=== PATIENT | female | born 1960 | race Caucasian/White ===

== ENCOUNTER 2020-11-09 09:50 | Outpatient (REF) | payer OTHER, SELFPAY ==
--- NOTE | ~2020-11-09 | MM_ITS ---
EXAMINATION: MM SCREENING DIGITAL BREAST TOMOSYNTHESIS, BILATERAL CLINICAL INFORMATION: Screening. Asymptomatic. The lifetime risk of breast cancer based on the Tyrer-Cuzick Model is 12%. COMPARISON: Mammography: 10/01/2017, 09/15/2016, 06/15/2015 TECHNIQUE: Digital breast tomosynthesis is performed in both the craniocaudal and mediolateral oblique views along with computer-aided detection (CAD). Synthesized 2D images are generated from the tomosynthesis. Additional right MLO view and exaggerated right CC view are provided. FINDINGS: There are scattered areas of fibroglandular density (ACR BI-RADS breast composition Category b). There are no significant masses, abnormal calcifications, or other abnormalities. Parenchymal pattern is similar to prior studies. No developing density or interval mass or architectural abnormality. There are 2 stable intramammary nodes posterior upper outer left breast. The axilla and skin contours are unremarkable. MM/MM tomosynthesis screening BI IMPRESSION: No mammographic evidence of malignancy. ASSESSMENT: BI-RADS 2: Benign RECOMMENDATION: Routine annual mammography screening. This patient's information was entered into a reminder system with a target due date for their next mammogram.
== END 2020-11-09 09:51 | disposition home or self-care (01) ==
LOC: HO.MAMMO 09:50
PROVIDERS: PCP Nurse Practitioner Family; Visit Provider Internal Medicine
DX: Z12.31 Encounter for screening mammogram for malignant neoplasm of breast (principal)
CPT/HCPCS: 77063; 77067

== ENCOUNTER 2022-04-07 09:49 | Outpatient (REF) | payer OTHER, SELFPAY ==
--- NOTE | ~2022-04-07 | MM_ITS ---
EXAMINATION: MM SCREENING DIGITAL BREAST TOMOSYNTHESIS, BILATERAL CLINICAL INFORMATION: Screening. Asymptomatic. The lifetime risk of breast cancer based on the Tyrer-Cuzick Model is 5.9%. COMPARISON: Mammography: November 09, 2020 and studies dating back to February 12, 2012 TECHNIQUE: Digital breast tomosynthesis is performed in both the craniocaudal and mediolateral oblique views along with computer-aided detection (CAD). Synthesized 2D images are generated from the tomosynthesis. FINDINGS: The breasts are almost entirely fatty (ACR BI-RADS breast composition Category a). There are no significant masses, abnormal calcifications, or other abnormalities. MM/MM tomosynthesis screening BI IMPRESSION: No significant changes ASSESSMENT: BI-RADS 1: Negative RECOMMENDATION: Routine annual mammography screening. This patient's information was entered into a reminder system with a target due date for their next mammogram.
== END 2022-04-07 09:50 | disposition home or self-care (01) ==
LOC: HO.MAMMO 09:49
PROVIDERS: Visit Provider Nurse Practitioner Family
DX: Z12.31 Encounter for screening mammogram for malignant neoplasm of breast (principal)
CPT/HCPCS: 77063; 77067

== ENCOUNTER 2023-10-13 14:58 | Outpatient (REF) | payer OTHER, SELFPAY ==
--- NOTE | ~2023-10-13 | MM_ITS ---
EXAMINATION: MM SCREENING DIGITAL BREAST TOMOSYNTHESIS, BILATERAL CLINICAL INFORMATION: Screening. Asymptomatic. COMPARISON: Mammography: Comparison is made with available priors TECHNIQUE: Digital breast tomosynthesis is performed in both the craniocaudal and mediolateral oblique views along with computer-aided detection (CAD). Synthesized 2D images are generated from the tomosynthesis. FINDINGS: There are scattered areas of fibroglandular density (ACR BI-RADS breast composition Category b). There are no significant masses, abnormal calcifications, or other abnormalities. MM/MM tomosynthesis screening BI IMPRESSION: No mammographic evidence of malignancy. ASSESSMENT: BI-RADS BI-RADS 1 - Negative RECOMMENDATION: Routine annual mammography screening. 1 year F/U This examination should not preclude the clinical evaluation of a suspicious palpable abnormality. This patient's information was entered into a reminder system with a target due date for their next mammogram. Electronically signed by: Radha Rodriguez DO 11/05/2023 08:41 PM EDT
== END 2023-10-13 14:59 | disposition home or self-care (01) ==
LOC: HO.MAMMO 14:58
PROVIDERS: PCP Nurse Practitioner Family; Visit Provider Nurse Practitioner Family
DX: Z12.31 Encounter for screening mammogram for malignant neoplasm of breast (principal)
CPT/HCPCS: 77063; 77067

== ENCOUNTER → 2023-10-13 15:30 | Outpatient (BNV) | payer OTHER, SELFPAY | PROVIDERS: PCP Nurse Practitioner Family; Visit Provider Internal Medicine | DX: Z12.31 Encounter for screening mammogram for malignant neoplasm of breast (principal) | CPT/HCPCS: 77063; 77067 ==

== ENCOUNTER 2024-09-30 18:31 | Emergency (ER) | payer OTHER, SELFPAY ==
--- NOTE | ~2024-09-30 | CT_ITS ---
CLINICAL HISTORY: fall and head injury CT head without contrast Indication: Comparison: None Findings: Brain is normal in volume and morphology. Ventricles are normal in size. Midbrain, luis fernando, medulla, and cerebellum are normal. There is no focal loss of andrade-white differentiation in a large arterial distribution. Scattered hypodensities in the subcortical and periventricular white matter are present. No subarachnoid hemorrhage is present. No subdural or epidural hematoma. Suprasellar and basal cisterns are clear. There is no midline shift. The sella demonstrates a flattened sellar morphology Orbits are normal. No acute calvarial fracture or diastasis. Mastoid air cells are normally aerated. Aerated paranasal sinuses are clear. Frontal sinuses are hypoplastic. Temporal bones are normal. Anatomic variant high-riding right jugular bulb. Scattered intraparotid lymph nodes are present bilaterally. No large soft tissue hematoma. IMPRESSION: 1. No acute intracranial hemorrhage. 2. No loss of andrade-white differentiation in a large vascular distribution. This document has been electronically signed by: Daryl Nova III, MD PHD on 09/30/2024 21:28:43
--- NOTE | ~2024-09-30 | CT_ITS ---
CLINICAL HISTORY: fall, neck pain CT cervical spine without contrast Comparison: None TECHNIQUE: Helical CT of the cervical spine with sagittal and coronal reconstructions. FINDINGS: Clivus and dens are normally aligned. Cervical alignment demonstrates anterolisthesis of C3 on C4 and loss of normal cervical lordosis. There is severe facet arthropathy at left C1-C2 there is a variant pseudoarticulation between the left occiput and the left lateral mass/transverse elements of C1 Occipital condyles are intact. Cervical vertebral body heights are maintained. Articular facets are normally aligned. There is severe facet arthropathy at left C1/2, C2/3, C3/4, C4/5, right C2/3. Spinous processes and lamina are intact. No CT evidence of epidural hematoma. C1/C2: Erosive changes are present in the dens with noncalcified retro dental soft tissue narrowing the foramen magnum. C2/C3: Posterior disc osteophyte complex and facet arthropathy contributing to severe left and moderate right foraminal narrowing. C3/C4: Posterior disc osteophyte complex and facet arthropathy contributing to moderate spinal canal stenosis, severe left, mild right foraminal narrowing. C4/C5: Posterior disc osteophyte complex contributes to mild spinal canal narrowing moderate left, mild right foraminal narrowing. C5/C6: There is severe disc space narrowing. Posterior disc osteophyte complex contributes to mild spinal canal narrowing and moderate bilateral foraminal narrowing. C6/C7: Moderate disc space narrowing. Posterior disc osteophyte complex and facet arthropathy contributing to mild bilateral foraminal narrowing. C7/T1: No spinal canal or foraminal narrowing. Prevertebral soft tissues are normal. Thyroid gland is homogeneous IMPRESSION: No acute fracture, subluxation, or static evidence of instability. Erosive changes at the atlanto odontoid articulation with retro dental soft tissue may be seen with CPPD arthropathy. Anatomic variant pseudoarticulation between the left occipital bone and the transverse elements of C1 contributing to accelerated degenerative change at O1-C1 and C1-C2. This document has been electronically signed by: Daryl Nova III, MD PHD on 09/30/2024 21:34:53
[2024-09-30 18:35] VITALS: BP 165/65; PULSE 79; RESP 18; TEMP 36.6; O2SAT 96; BMI 40.0
--- NOTE | 2024-09-30 18:49 | ECG_ITS ---
Test Reason : FALL Blood Pressure : */* mmHG Vent. Rate : 72 BPM Atrial Rate : 72 BPM P-R Int : 192 ms QRS Dur : 86 ms QT Int : 394 ms P-R-T Axes : -18 -9 -8 degrees QTcB Int : 431 ms Normal sinus rhythm Low voltage QRS Borderline ECG When compared with ECG of 17-May-2007 21:17, No significant changes seen Referred By: Taiwo Bell Electronically Signed By: Benito Chapman
--- NOTE | 2024-09-30 18:50 | ED_ITS ---
HPI - Fall General Chief Complaint: Fall Stated Complaint: fall w/ head strike Time Seen by Provider: 09/30/24 18:33 Source: patient and EMS Mode of arrival: EMS Limitations: no limitations History of Present Illness ED Provider: DR. Bell HPI Narrative: A 63-year-old female brought in by ambulance for evaluation after a fall. Patient was holding a grocery bag on her hands tripped over her flip-flop causing her to fall forward patient could not protect her fall with her hands hit the top of her head on the wall causing her to fall down with a questionable of less than 2nd of LOC, patient is complaining of headache, and left-sided neck pain initially was complaining of nausea that improved with sublingual Zofran. No weakness, no numbness, no CP, no abdominal pain, no extremities pain or deformity. Patient declined taking anticoagulation. Related Data Allergies Allergy/AdvReac Type Severity Reaction Status Date / Time No Known Allergies Allergy Verified 09/30/24 18:45 Review of Systems 2 Review of Systems: All other systems are reviewed and are negative Constitutional: Reports as per HPI and Reports no additional constitutional complaints Eyes: Reports as per HPI and Reports no additional eye complaints Reports system reviewed and no additional complaints, except as documented Cardiovascular: Reports as per HPI and Reports no additional cardiovascular complaints Respiratory: Reports as per HPI and Reports no additional respiratory complaints Gastrointestinal: Reports as per HPI and Reports no additional gastrointestinal complaints Genitourinary: Reports no additional female genitourinary complaints Musculoskeletal: Reports no additional musculoskeletal complaints Skin/Breast: Reports system reviewed and no additional complaints, except as docu Psychiatric: Reports no additional psychiatric complaints Endocrine: Reports no additional endocrine complaints Hematologic/Lymphatic: Reports no additional hematologic/lymphatic complaints Allergic/Immunologic: Reports no additional allergic/immunologic complaints Reports system reviewed and no additional complaints, except as documented and Reports Abnormal speech present [facility] Social History Social History Advance Directives: No Advance Directives Information Provided: No Physical Exam 2 Vital Signs: Vital Signs: Last Vital Signs Temp 97.9 F 09/30/24 18:35 Pulse 79 09/30/24 18:35 Resp 18 09/30/24 18:35 BP 165/65 H 09/30/24 18:35 Pulse Ox 96 09/30/24 18:35 O2 Del Method Room Air 09/30/24 18:35 BMI result Body Mass Index 40.0 Vital signs have been reviewed and appear to be correct. Blood pressure elevated. Heart rate normal. Respiratory rate normal. Temperature normal. Oxygen saturation normal. Appearance: Alert. Oriented X3. No acute distress. Head: Normal external exam. Normocephalic. Atraumatic. No Armenta signs noted. No raccoon eyes noted Eyes: PERRLA. EOMI. Conjunctiva and sclera normal. Eyelids normal. ENT: TM's Normal. Pharynx normal. Uvula midline. Moist mucous membranes. No trismus noted. No drooling noted. No muffled voice noted. Neck: C-collar keep cervical immobilization, Normal inspection. Neck supple. FROM. No adenopathy. Thyroid Normal. No meningeal signs. No neck mass noted. CVS: Normal heart rate and rhythm. Heart sound normal. No murmurs noted. Pulses normal throughout. Respiratory: No respiratory distress. Painless inspiration. Breath sounds normal. No wheezes/rales/rhonchi noted. Chest nontender. No accessory muscle usage noted or decreased air movement noted. Abdomen: Soft and nontender. Bowel sounds normal in all 4 quadrants. No distention noted. No organomegaly noted. No visible injury noted. Back: No CVA tenderness. Full range of motion noted. Skin: Skin warm and dry. Normal skin color. Normal skin turgor. No rashes/lesions/lacerations noted. Extremities: No lower extremity edema. Extremities exhibit normal range of motion. Extremities nontender. Neuro: Oriented X 3. GCS of 15. Cranial nerve exam: II-XII are grossly intact No motor deficit. No sensory deficit. Reflexes normal. Course Reevaluation(s) Reevaluation #1: s/p fall with head injury. Normal neuro exam, GCS of 15. Await for CT head/cervical spine official report. Signed out to Dr. Garcia. Time: 20:00 Reevaluation #2: work up negative Medications Administered Discontinued Medications Generic Name Dose Route Start Last Admin Trade Name Freq PRN Reason Stop Dose Admin Acetaminophen 650 mg 09/30/24 18:47 09/30/24 19:57 Acetaminophen 325 Mg Tablet PO 09/30/24 18:48 Not Given ONCE ONE Medical Decision Making Differential Diagnosis Differential Diagnoses: The differential diagnosis associated with the presentation includes ( Intracranial bleed, cervical spine injury, extremity injury, chest injury, abdominal injury, back injury, ACS.) Admission/Observation Consideration of admission/observation: Escalation of care including admission/observation considered Lab Data MDM Lab Attestation statement: I reviewed the patient's lab results. 09/30/24 19:45 09/30/24 19:45 Labs: Lab Results 09/30/24 Range/Units 19:45 WBC 10.7 (4.8-10.8) X10*3/uL RBC 4.87 (4.20-5.50) X10*6/uL Hgb 12.6 (12.0-16.0) g/dl Hct 38.8 (37.0-47.0) % MCV 79.7 L (80.0-98.0) fL MCH 25.9 L (27.0-33.0) pg MCHC 32.5 (31.0-35.0) g/dl RDW 13.6 (11.0-16.0) % Plt Count 308 (160-400) X10*3/uL MPV 10.0 (9.4-12.3) fL Immature Gran % (Auto) 0.3 (0.0-0.4) % Neut % (Auto) 68.3 (45-73) % Lymph % (Auto) 20.2 (20-40) % Haakon % (Auto) 7.7 (2-11) % Eos % (Auto) 2.8 (0-4) % Baso % (Auto) 0.7 (0-2) % Lymph # (Auto) 2.2 (1.2-4.9) X10*3/uL Haakon # (Auto) 0.8 (0.1-1.2) X10*3/uL Eos # (Auto) 0.3 (0.0-0.4) X10*3/uL Baso # (Auto) 0.1 (0.0-0.2) X10*3/uL Abs Immat Gran (auto) 0.03 (0.00-0.03) X10*3/uL Absolute Neuts (auto) 7.3 (2.0-8.3) x10*3/uL Absolute Nucleated RBC 0.000 (0.0-0.012) X10*3/uL Nucleated RBC % (auto) 0.0 (0.0-0.2) /100WBC Sodium 140 (135-145) mmol/L Potassium 4.1 (3.3-5.1) mmol/L Chloride 104 (96-108) mmol/L Carbon Dioxide 24 (22-29) mmol/L Anion Gap 16 (12-20) BUN 21 H (9-16) mg/dL Creatinine 0.67 (0.5-1.4) mg/dL Estim Creat Clear Calc 101.8 Estimated GFR > 60 Random Glucose 82 (60-115) mg/dL Calcium 9.7 (8.4-10.2) mg/dL Troponin I High Sens 2.8 (<3.5-17.0) ng/L Discharge Plan Discharge Clinical Impression: Closed head injury, Cervical sprain Patient Disposition: Home, Self-Care Instructions: Head Injury (ED) Additional Instructions: CT scan of head adn cervical spine show no acute trauma you have arthritis in the neck your primary care doctor can monitor this return for worsening symptoms or concerns such as severe pain, vomiting that wont' stop or confusion IMPRESSION: No acute fracture, subluxation, or static evidence of instability. Erosive changes at the atlanto odontoid articulation with retro dental soft tissue may be seen with CPPD arthropathy. Anatomic variant pseudoarticulation between the left occipital bone and the transverse elements of C1 contributing to accelerated degenerative change at O1-C1 and C1-C2. Print Language: Brazilian
[2024-09-30 19:50] LABS: MANUAL DIFF FLAG NO
[2024-09-30 19:51] LABS: Hematocrit 38.8 % (37.0-47.0); Hemoglobin 12.6 g/dl (12.0-16.0); Imm Gran Abs Auto 0.03 X10*3/uL (0.00-0.03); Imm Gran Pct Auto 0.3 % (0.0-0.4); Lymphocytes Absolute Auto 2.2 X10*3/uL (1.2-4.9); Mean Corpuscular HGB Conc 32.5 g/dl (31.0-35.0); Mean Corpuscular Hemoglobin 25.9 pg (27.0-33.0); Mean Corpuscular Volume 79.7 fL (80.0-98.0); NRBC Abs Auto 0.000 X10*3/uL (0.0-0.012); NRBC Pct Auto 0.0 /100WBC (0.0-0.2); Platelet Count 308 X10*3/uL (160-400); Red Blood Count 4.87 X10*6/uL (4.20-5.50); White Blood Count 10.7 X10*3/uL (4.8-10.8)
[2024-09-30 20:02] LABS: Anion Gap 16 (12-20); Blood Urea Nitrogen 21 mg/dL (9-16); Calcium 9.7 mg/dL (8.4-10.2); Carbon Dioxide 24 mmol/L (22-29); Chloride 104 mmol/L (96-108); Creatinine Clr Calc Pharmacy 101.8; Estimated Glomerular Filt Rate > 60; Potassium 4.1 mmol/L (3.3-5.1); Sodium 140 mmol/L (135-145)
[2024-09-30 20:10] LABS: Troponin-I High Sensitivity 2.8 ng/L (<3.5-17.0)
[2024-09-30 21:52] VITALS: BP 145/69; PULSE 73; RESP 16; TEMP 36.8; O2SAT 95
== END 2024-09-30 21:53 | disposition home or self-care (01) ==
PROVIDERS: Emergency Provider Emergency Medicine
DX: S06.9X1A Unspecified intracranial injury with loss of consciousness of 30 minutes or less, initial encounter (principal); S13.4XXA Sprain of ligaments of cervical spine, initial encounter; R40.2412 Glasgow coma scale score 13-15, at arrival to emergency department; W01.198A Fall on same level from slipping, tripping and stumbling with subsequent striking against other object, initial encounter; Y93.9 Activity, unspecified; Y92.9 Unspecified place or not applicable; Y99.9 Unspecified external cause status; R51.9 Headache, unspecified; M54.2 Cervicalgia; R11.0 Nausea
CPT/HCPCS: 36415; 70450; 72125; 80048; 84484; 85025; 93005; 99284

== ENCOUNTER → 2024-09-30 18:47 | Outpatient (BNV) | payer OTHER, SELFPAY | PROVIDERS: Emergency Provider Emergency Medicine; Visit Provider Radiology Diagnostic Radiology | DX: M54.2 Cervicalgia (principal); S09.90XA Unspecified injury of head, initial encounter | CPT/HCPCS: 70450; 72125 ==

== ENCOUNTER → 2024-09-30 18:49 | Outpatient (BNV) | payer OTHER, SELFPAY | PROVIDERS: Emergency Provider Emergency Medicine; Visit Provider Internal Medicine Cardiovascular Disease | DX: S09.90XA Unspecified injury of head, initial encounter (principal); W19.XXXA Unspecified fall, initial encounter | CPT/HCPCS: 93010 ==

== ENCOUNTER 2024-10-11 13:32 | Outpatient (REF) | payer OTHER, SELFPAY ==
--- NOTE | ~2024-10-11 | XR_ITS ---
EXAMINATION: XR WRIST, RIGHT CLINICAL INFORMATION: M25.531 - Pain in right wrist COMPARISON: October 08, 2024 TECHNIQUE: PA, lateral, and oblique views of the right wrist. FINDINGS: There is intra-articular fracture involving the distal radius is mildly impacted at the articular surface and there is mild volar tilt. There is a mildly distracted ulnar styloid tip fracture. No other fractures are identified. No degenerative changes are seen. XR/XR wrist RT min 3V IMPRESSION: Impacted distal radial intra-articular fracture. Avulsion fracture of the ulnar styloid tip. Electronically signed by: Frandy Paiz MD 10/11/2024 02:36 PM EDT
== END 2024-10-11 13:33 | disposition home or self-care (01) ==
LOC: HO.HOSX 13:32
DX: S52.561A Barton's fracture of right radius, initial encounter for closed fracture (principal); S52.611A Displaced fracture of right ulna styloid process, initial encounter for closed fracture; W01.0XXA Fall on same level from slipping, tripping and stumbling without subsequent striking against object, initial encounter; Y92.009 Unspecified place in unspecified non-institutional (private) residence as the place of occurrence of the external cause
CPT/HCPCS: 73110

== ENCOUNTER 2024-10-11 13:39 | Outpatient (AMB) | payer OTHER, SELFPAY ==
[2024-10-11 13:48] VITALS: BMI 39.8
--- NOTE | 2024-10-11 13:48 | MHC.OFFVIS ---
Vital Signs 10/11/24 13:48 Height 5 ft 4 in Weight 232 lb BMI 39.8 Intake Visit Reasons: FC-RT Radius & RT Ulnar Styloid-10/08/24 Intake Note: Brandy is a 63 year old right hand dominant female who presents today for evaluation of a Right Radius Fracture & a Right Ulnar Styloid Fracture, DOI: 10/08/24. Patient states she tripped and fell while at her daughter's house. Patient complains of burning sensation on the dorsal aspect of the right wrist. She is taking Tylenol with relief. Denies numbness, tingling, finger locking. No previous injuries or fractures to the right hand. Patient is also reporting she injured her left wrist during this fall. She is concerned for swelling on the ulnar aspect of the left wrist. Patient was originally evaluated at [facility] , who referred patient. Accompanied by: Daughter Allergies adhesive tape Adverse Reaction (Severe, Verified 10/11/24 13:51) Rash HPI HPI FC-RT Radius & RT Ulnar Styloid-10/08/24: Details: Brandy is a 63 year old right hand dominant female who presents today for evaluation of a Right Radius Fracture & a Right Ulnar Styloid Fracture, DOI: 10/08/24. Patient states she tripped and fell while at her daughter's house. Patient complains of burning sensation on the dorsal aspect of the right wrist. Patient also reports significant pain in the volar aspect of the right wrist She is taking Tylenol with relief. Denies numbness, tingling, finger locking. No previous injuries or fractures to the right hand. Patient is also reporting she injured her left wrist during this fall. She is concerned for swelling on the ulnar aspect of the left wrist, however the patient reports that any pain she was experiencing in the left hand has completely resolved. [facility] Medical History (Updated 10/11/24 @ 18:37 by FLORIAN Moore) Obesity HLD (hyperlipidemia) GERD (gastroesophageal reflux disease) Depression Insomnia Asthma Allergic rhinitis Social History (Updated 10/11/24 @ 13:52 by SANDY Lezama) Patient Tobacco Use Status: Former Tobacco user Current occupational status: employed Current occupation: [employer] at [employer] Review of Systems Const All systems reviewed & are unremarkable except as noted in HPI and below Physical Exam Vital Signs: BMI result Body Mass Index 39.8 Extrem Other: Patient is alert, oriented, and in no acute distress. Neuro: Normal sensation of the tips of all digits of the right hand at this time Vascular: Cap refill brisk Pain: Significant tenderness to palpation about right distal radius No anatomical snuffbox tenderness Skin: No lacerations or abrasions. General: Resolving ecchymosis, no erythema or evidence of infection Psych: Appears grossly normal Affect normal Attitude cooperative Results Reviewed Results Reviewed: X-rays obtained in the office today and independently reviewed by me, Jonny Jung PA-C, demonstrate minimally displaced volar Bowser fracture of the right distal radius with displaced avulsion fracture of the right ulnar styloid. Assessment & Plan Assessment & Plan (1) Fracture of right distal radius: Code(s): S52.501A - Unspecified fracture of the lower end of right radius, initial encounter for closed fracture Category: Medical Plan 1. Right distal radius fracture Date of injury 10/08/2024 I educated the patient about the condition. I discussed both operative and nonoperative treatment options. The patient would like to proceed with surgery. The risks and benefits of operative treatment were discussed with the patient and the patient wishes to proceed with surgery. These risks include, but are not limited to, risk of damage to blood vessels, nerves, tendons, infection, recurrence, incomplete relief of preoperative symptoms, persistent pain, possible need for further surgery, and the risks associated with regional blocks and/or anesthesia. Plan is to take the patient to the operating room at some point on 10/12/2024 for the following procedures: 1. Right distal radius ORIF under general anesthesia All of the preoperative paperwork including the consent was discussed today. All of the patient's questions were answered in the clinic today. The patient understands that they will be in contact with our medical or surgical instrument maker to discuss scheduling their procedure. Patient denies diabetes, blood thinners, asthma, heart issues, lung issues, kidney issues, or current smoking. Orders: Orders XR wrist RT min 3V Today M25.531 - Pain in right wrist Coding Level of Care Code New Pt Level 4 (31123) Diagnoses Fracture of right distal radius S52.501A
== END 2024-10-11 14:39 | disposition home or self-care (01) ==
LOC: HO.HOS 13:39
DX: S52.501A Unspecified fracture of the lower end of right radius, initial encounter for closed fracture (principal)
CPT/HCPCS: 99204

== ENCOUNTER → 2024-10-11 13:42 | Outpatient (BNV) | payer OTHER, SELFPAY | PROVIDERS: Visit Provider Radiology Diagnostic Radiology | DX: M25.531 Pain in right wrist (principal) | CPT/HCPCS: 73110 ==

== ENCOUNTER 2024-10-12 10:50 | Day surgery (SDC) | payer OTHER, SELFPAY ==
--- OUTSIDE RECORDS SUMMARY | 2024-10-11 10:23 | XMS_ITS | Patient Health Record ---
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 1 .use custom PTB/AF O brace left leg with heel padding Wear daily; Duration: . 11/23/2014 Not-Taking Work Note . . . pt is disabled f rom work until 11/01/14 and then must wear cast boot and use elevator with limited standing or walking 10/29/2014 Not-Taking Advair Diskus Not-Ta [facility] Allergy Activ e Simvastatin 40 MG 1 tablet in the even ing Orally Once a day Active Sertraline HCl 50 MG 1 tablet Orally Onc e a day; Duration: 30 day(s) Active Montelukast Sodium 10 MG 1 tablet Orally Once a day; Duration: 30 day(s) Active Immunizations Vaccine Route Administration Date Status Comme nts COVID-19 Pfizer BioNTech Vaccine Unknown 06/22/2020 Administered First Dose: Social History Tobacco Use: Social History Observation Description Date Details (start date - stop date) Former Smoker NA - NA Tobacco Use/Smoking Question Answer Notes Are you a: former smoker Additional Findings: Tobacco Non-User Current no n-smoker Alcohol Screen Question Answer Notes Did you have a drink containing alcohol in the p ast year? No Points 0 Interpretation Negative Tobacco use other than smoking: Question Answer Notes Are you an other tobacco user? No Problems Problem Type SNOMED Code ICD Code Onset Dates Problem Status W/U Status Risk Notes Problem Stress fracture of left ankle (disorder) (4420106063181350 3) Stress fracture of left ankle with routine healing (M84.372D) Active confirmed Problem Localized, primary osteoarthritis of the ankle and/or foot (224092627) Osteoarthritis of right ankle and foot (M19.071) Active confirmed Plan Of Treatment Pending Test Test Name Order Date X ray : Ankle, left 2V 07/12/2014 X ray : Foot, left 2V 07/12/2014 X ray : Foot, left 3V 06/10/2011 X ray : Foot, right 3V 12/01/2012 X ray : Foot, right 3V 02/12/2021 22426, J0702- INJECT or DRAIN, JOINT/BUR SA 09/17/2014 61253, J0702- Neuroma/Injection 12/02/19 13 [id number] Boot/Pneumatic 10/15/2011 Insurance Providers Payer Name Payer Address Payer Phone Subscriber Number Group Number Insured Name Patient Relationship to Insured Coverage Start Date Coverage End Date [facility] [address] [place] [address] [phone] [id number] Brandy Del Angel Self - patient is the insured Medical (General) History Medical History History ICD Code asthma chicken pox Surgical History Surgery Date(Month/Year) wisdom teeth extraction
[2024-10-12] VITALS (9 sets, daily range): BP systolic 114–162; BP diastolic 55–72; PULSE 65–87; RESP 11–16; TEMP 36.4–36.9; O2SAT 90–97; BMI 39.0
--- NOTE | ~2024-10-12 | FL_ITS ---
EXAMINATION: FL GUIDANCE ONLY HISTORY: Radius Distal Fracture ORIF (Right) COMPARISON: Correlation is made with plain films of the right wrist dated 10/11/2024. TECHNIQUE: Fluoroscopy time: 76.64 seconds. Cumulative Dose: 2.007 mGy. DAP: 0.1213 mGym2 Images: 11. FINDINGS: Fluoroscopic spot films of the right wrist demonstrate internal fixation of the previously seen comminuted intra-articular fracture with a sideplate and multiple orthopedic screws. Alignment is anatomic. FL/FL guidance in OR IMPRESSION: Fluoroscopy during procedure. Please see procedure report for additional information. Electronically signed by: Miguelangel Florez MD 10/12/2024 03:18 PM EDT
--- NOTE | 2024-10-12 09:18 | W.PM.OPN ---
Operative Note Operative Note Date of Service: 10/12/24 Narrative: Operative Note Narrative: Preop diagnosis: 1. Right Distal radius fracture, comminuted intra-articular volar Bowser Postop diagnosis: Same Procedure: 1. Right Distal radius fracture open reduction internal fixation, 2 part intra-articular Surgeon: Odilia Correa MD District Representative: Jonny DU Anesthesia: General anesthesia plus regional block Findings: Volar Bowser variant Implants: A 3 hole Accu Med volar locking plate, with 4 X 2.3 mm locking pegs/screws, and 3 x 3.5 mm cortical screws Tourniquet time: 45 minutes EBL: 5.0 ml Specimen: None Drains: None Complications: None Disposition: Brought to the recovery room in stable condition Plan: Follow-up in 10-14 days for wound check, suture removal and postop radiographs The patient will be placed in either a short-arm cast or a volar wrist splint. Encouraged no lifting of anything heavier than a cell phone. Please encourage active and passive range of motion of the digits. Follow-up at 4-5 weeks postop for repeat radiographs. Indications: The patient is a 63 year old woman with right distal radius fracture . The risks and benefits of operative treatment, including but not limited to risk of damage to blood vessels, nerves, tendons, infection, recurrence, persistent pain or numbness, incomplete resolution of preoperative symptoms, or need for further surgery were discussed with the patient and they wished to proceed with surgery. Procedure: Once consent was obtained patient was brought back to the operating suite and placed in the operating table in a supine position. A regional block was performed by the anesthesia team. Perioperative antibiotics and anesthesia was administered by the anesthesia team. A tourniquet was applied to the proximal aspect of the right upper extremity and the limb was prepped and draped in a standard surgical fashion. The limb was elevated exsanguinated with Esmarch bandage and the tourniquet inflated to 250 mm of mercury for a total tourniquet time of 45 minutes. The FluoroScan was used throughout the case to assess our reduction, and facilitate implant placement. A gentle closed reduction was 1st performed on the patient's right distal radius fracture. Was assessed radiographically before proceeding with the reduction internal fixation. I then made an 8 cm longitudinal incision over the distal aspect of the flexor carpi radialis tendon. The incision was made through the skin to the subcutaneous tissue using a 15. Blade. Then carefully dissected down to flexor carpi radialis tendon she tenotomy scissors. The FCR tendon sheath was then incised longitudinally using tenotomy scissors under direct visualization. The FCR tendon was then retracted ulnarly. I then made a longitudinal incision in the volar forearm fascia through the floor of FCR tendon sheath using tenotomy scissors under direct visualization. I identified the interval between the radial artery and the flexor tendons. This interval was developed further with my index finger, releasing some of the muscular fibers of the flexor pollicis longus. A dull weatlander retractor was then placed. I then created an ulnarly based flap of the pronator quadratus by releasing the radial and distal edges using a 15. Blade. A Biggs elevator was used to elevate the pronator quadratus from the volar surface of the distal radius. This then revealed to us our distal radius fracture. This was a volar Bowser intra-articular distal radius fracture with volar and proximal displacement An open reduction was then performed on our distal radius fracture. I then placed a short narrow 3 hole Accu Med volar locking plate on the volar surface of the distal radius. This was secured 1st by drilling bicortically through the oval hole on the shaft with a 2.8 mm drill bit. I then placed the appropriate length 3.5 mm cortical screw. Radiographs were assessed and we were satisfied with its position. I then placed 4 X 2.3 mm locking screws/pegs in the distal aspect of the plate and distal radius by 1st drilling bicortically with a 2.0 mm drill bit, measuring with a depth gauge, and placing the appropriate length locking screws/pegs. The placement of our plate and screws was then assessed again using fluoroscopic images. The once satisfied with the placement of the volar locking plate and screws on the distal aspect of the distal radius, 2 additional 3.5 mm cortical screws were placed in the shaft in a similar manner to the 1st. Final radiographs were then obtained. The DRUJ was assessed and found to be stable on exam. I was satisfied with our reduction and placement of all implants. At this point the wound was irrigated with normal saline. The pronator quadratus was reduced back over the volar locking plate using some 3-0 Vicryl suture material. The tourniquet was then deflated and hemostasis was obtained with a brief period of local pressure and bipolar monopolar electrocautery. The subcutaneous layer was then reapproximated using some 4-0 Vicryl suture, and the skin edges were reapproximated using some 5 0 Prolene suture. The wound was then infiltrated with some 1% lidocaine with epinephrine postop pain control. A sterile dressing and a short dorsal splint allowing for active flexion and extension of the digits was applied. The patient appears to have tolerated the procedure well and with no complications. All digits were well vascularized conclusion of the case.
[2024-10-12] MEDS: Lactated Ringers 1,000 ML 100 ML IVCONT (11:15)
--- NOTE | 2024-10-12 11:34 | MHC.SHP ---
Pre-Procedural Eval Section A - 24 Hr Update-Section A only Date of Service: 10/12/24 The patient is an INPATIENT: No Changes since office visit: No Cold of Flu in the past 2 weeks, No New Medical Problems, No Changes in Medication and No Patient answered all questions The patient has been examined within 24 hours of the surgical procedure. The History & Physical has been completed within 30 days and I have reviewed it.: Yes Section B - Complete if H&P > 30 days Chief Complaint: Colles' fracture of right radius, initial encounte Allergies: Allergies Allergy/AdvReac Type Severity Reaction Status Date / Time adhesive tape AdvReac Severe Rash Verified 10/11/24 13:51 Plan I have reviewed the history and physical and performed a pertinent physical examination on my patient. No changes have occurred unless specified. Time Spent With Patient Time: Total time managing care of this patient today ____ minutes.
--- NOTE | 2024-10-12 12:05 | HO.ANESPROP2 ---
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 [employer] Allergies Allergy/AdvReac Type Severity Reaction Status Date / Time adhesive tape AdvReac Severe Rash Verified 10/11/24 13:51 Home Medications ?Medication ?Instructions ?Recorded ?Confirmed ?Last Taken ?Type albuterol sulfate 90 mcg/actuation inhalation 10/11/24 Unknown History aerosol inhaler budesonide-formoterol HFA 160 inhalation 10/11/24 Unknown History mcg-4.5 mcg/actuation aerosol inhaler (Symbicort) meloxicam 15 mg tablet 15 mg PO DAILY 10/11/24 Unknown History montelukast 10 mg tablet 10 mg PO DAILY 10/11/24 Unknown History sertraline 50 mg tablet 50 mg PO DAILY 10/11/24 Unknown History simvastatin 40 mg tablet 40 mg PO BEDTIME 10/11/24 10/11/24 08:00 History Exam Pertinent Lab Results Pertinent Lab Results: Laboratory Tests 09/30/24 19:45 WBC 10.7 Hgb 12.6 Hct 38.8 Plt Count 308 Sodium 140 Potassium 4.1 Chloride 104 Carbon Dioxide 24 BUN 21 H Creatinine 0.67 Assessment and Plan Assessment Anesthesia Assessment: Chart Reviewed Documented by User: Gloria Santamaria DO 10/12/24 12:40 [facility] Past Medical History Medical History (Updated 10/11/24 @ 18:37 by FLORIAN Moore) Obesity HLD (hyperlipidemia) GERD (gastroesophageal reflux disease) Depression Insomnia Asthma Allergic rhinitis Family History Family history of problems with anesthesia: No Surgical History History of Problems with Anesthesia: No Social History Social History (Updated 10/11/24 @ 13:52 by SANDY Lezama) Patient Tobacco Use Status: Former Tobacco user Current occupational status: employed 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 [employer] Allergies Allergy/AdvReac Type Severity Reaction Status Date / Time adhesive tape AdvReac Severe Rash Verified 10/11/24 13:51 Home Medications ?Medication ?Instructions ?Recorded ?Confirmed ?Last Taken ?Type albuterol sulfate 90 mcg/actuation inhalation 10/11/24 Unknown History aerosol inhaler budesonide-formoterol HFA 160 inhalation 10/11/24 Unknown History mcg-4.5 mcg/actuation aerosol inhaler (Symbicort) meloxicam 15 mg tablet 15 mg PO DAILY 10/11/24 Unknown History montelukast 10 mg tablet 10 mg PO DAILY 10/11/24 Unknown History sertraline 50 mg tablet 50 mg PO DAILY 10/11/24 Unknown History simvastatin 40 mg tablet 40 mg PO BEDTIME 10/11/24 10/11/24 08:00 History Exam Exam Date and Time: 10/12/24 1205 Height,Weight and Vital Signs: Height 5 ft 4 in Weight 103.1 kg Vital Signs Temperature 98.5 F 10/12/24 11:15 Pulse Rate 75 10/12/24 11:15 Respiratory Rate 16 10/12/24 11:15 Blood Pressure 162/72 H 10/12/24 11:15 Pulse Oximetry 96 10/12/24 11:15 Oxygen Delivery Method Room Air 10/12/24 11:15 Temperature 98.5 F 10/12/24 11:15 Pulse Rate 75 10/12/24 11:15 Respiratory Rate 16 10/12/24 11:15 Blood Pressure 162/72 H 10/12/24 11:15 Pulse Oximetry 96 10/12/24 11:15 Oxygen Delivery Method Room Air 10/12/24 11:15 Airway Mallampati Class: III TM Dist: <=3cm Neck ROM: Full Loose/Missing/Broken Teeth: No (patient denies any loose or broken teeth) Heart: S1S2 Lungs: CTAB Assessment and Plan Assessment Anesthesia Assessment: Anesthesia Plan Discussed and Chart Reviewed Final Anesthetic Review Family History of Problems with Anesthesia: No History of Problems with Anesthesia: No NPO: Yes ASA Class: II Final Preanesthetic Review: No Changes in Pt Med Stat, Meds/Allgs Chart Reviewed, Consent Obtained/Reviewed and Anes Risks/Benef Reviewed Patient Risk: Low Procedure Risk: Intermediate Anesthetic Plan Anesthetic Plan: GA, Regional Block (right brachial plexus block) and Agree w/ Assess. and Plan Disposition: Standard PACU
== END 2024-10-12 16:10 | disposition home or self-care (01) ==
PROVIDERS: Visit Provider Orthopaedic Surgery
PROC: (CPT 25608; principal; 2024-10-12 12:40)
DX: S52.571A Other intraarticular fracture of lower end of right radius, initial encounter for closed fracture (principal); W01.198A Fall on same level from slipping, tripping and stumbling with subsequent striking against other object, initial encounter; Y93.01 Activity, walking, marching and hiking; Y92.89 Other specified places as the place of occurrence of the external cause; Y99.9 Unspecified external cause status; R51.9 Headache, unspecified; M54.2 Cervicalgia; M47.812 Spondylosis without myelopathy or radiculopathy, cervical region; E78.5 Hyperlipidemia, unspecified; J45.909 Unspecified asthma, uncomplicated; F32.A Depression, unspecified; Z79.51 Long term (current) use of inhaled steroids; Z79.899 Other long term (current) drug therapy; L23.1 Allergic contact dermatitis due to adhesives; Z87.891 Personal history of nicotine dependence
CPT/HCPCS: 25608; C1713; J0131; J0690; J1100; J2003; J2004; J2250; J2371; J2405; J2704; J3010

== ENCOUNTER → 2024-10-12 10:50 | Outpatient (BNV) | payer OTHER, SELFPAY | PROVIDERS: Visit Provider Orthopaedic Surgery | DX: S52.571A Other intraarticular fracture of lower end of right radius, initial encounter for closed fracture (principal) | CPT/HCPCS: 25608 ==

== ENCOUNTER 2024-10-25 09:07 | Outpatient (REF) | payer OTHER, SELFPAY ==
--- NOTE | ~2024-10-25 | XR_ITS ---
EXAMINATION: XR WRIST 3 OR MORE VIEWS RIGHT HISTORY: M25.531 - Pain in right wrist COMPARISON: Comparison is made with the prior examination dated 10/11/2024. FINDINGS: Three views of the right wrist are submitted. Osseous mineralization is normal. The patient is status post internal fixation of the previously seen comminuted intra-articular fracture of the distal radius with a sideplate and multiple orthopedic screws. The fracture lines remain visible. The radial styloid is a separate fragment. There is also a fracture of the ulnar styloid. The joint spaces are preserved. The soft tissues are unremarkable. XR/XR wrist RT min 3V IMPRESSION: Internal fixation of the previously seen comminuted intra-articular fracture of the distal radius as described. Electronically signed by: Miguelangel Florez MD 10/25/2024 10:09 AM EDT
--- OUTSIDE RECORDS SUMMARY | 2024-10-25 10:46 | XMS_ITS | Patient Health Record ---
[facility] Address [address] [place] [address] Care Team Providers Care Direct Selling Counselor Name Role Phone Daryl Bustos Primary Care Provider Jessica Mckeon Unavailable [phone] Allergies No Known Allergies Reason For Referral [...] or walking 10/29/2014 Not-Taking Advair Diskus Not-Ta [facility] Allergy Activ e Simvastatin 40 MG 1 [...] Problem Stress fracture of left ankle (disorder) (2317386953895442 3) Stress fracture of left ankle with routine healing (M84.372D) Active confirmed Problem Localized, primary osteoarthritis of the ankle and/or foot (150123587) Osteoarthritis of right ankle and foot (M19.071) Active confirmed Plan Of Treatment Pending Test Test Name Order Date X ray : Ankle, left 2V 07/12/2014 X ray : Foot, left 2V 07/12/2014 X ray : Foot, left 3V 06/10/2011 X ray : Foot, right 3V 12/01/2012 X ray : Foot, right 3V 02/12/2021 88791, J0702- INJECT or DRAIN, JOINT/BUR SA 09/17/2014 95314, J0702- Neuroma/Injection 12/02/19 13 [id number] Boot/Pneumatic 10/15/2011 Insurance Providers Payer Name Payer Address Payer Phone Subscriber Number Group Number Insured Name Patient Relationship to Insured Coverage Start Date Coverage End Date [facility] [address] [place] [address] [id number] Brandy Del Angel Self - patient is the insured Medical (General) History Medical History History ICD Code asthma chicken pox Surgical History Surgery Date(Month/Year) wisdom teeth extraction
== END 2024-10-25 09:08 | disposition home or self-care (01) ==
LOC: HO.HOSX 09:07
DX: S52.501D Unspecified fracture of the lower end of right radius, subsequent encounter for closed fracture with routine healing (principal); X58.XXXD Exposure to other specified factors, subsequent encounter
CPT/HCPCS: 29075; 73110

== ENCOUNTER 2024-10-25 09:43 | Outpatient (AMB) | payer OTHER, SELFPAY ==
--- NOTE | 2024-10-25 10:01 | MHC.OFFVIS ---
Vital Signs 10/25/24 10:02 Height 5 ft 4 in Weight 227 lb BMI 39.0 Intake Visit Reasons: PO RT distal radius ORIF 10/12/24 AR Intake Note: Brandy is a 63 year old right hand dominant woman who presents today for a post operative visit status post Right Distal Radius Fracture ORIF, DOS: 10/12/[address] Correa. Patient reports tingling sensation when bringin her forearm down. Denies any pain, other numbness or tingling. She is not taking anything for pain. Allergies adhesive tape Adverse Reaction (Severe, Verified 10/25/24 10:07) Rash HPI HPI PO RT distal radius ORIF 10/12/24 AR: Details: Brandy is a 63 year old right hand dominant woman who presents today for a post operative visit status post Right Distal Radius Fracture ORIF, DOS: 10/12/[address] Correa. Patient reports tingling sensation when bringin her forearm down. Denies any pain, other numbness or tingling. She is not taking anything for pain. Patient is a very satisfied with her recovery course so far. 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 Neuro: Normal sensation of the tips of all digits of the right hand at this time Vascular: Cap refill brisk Pain: Some tenderness to palpation of the right distal radius No pain with range of motion of the right hand ROM: Patient is able to make a closed fist and extend all digits of the right hand fully Skin: Well approximated and well healing incision site noted on the volar right wrist No lacerations or abrasions. General: Resolving ecchymosis, No erythema, or evidence of infection. Psych: Appears grossly normal Affect normal Attitude cooperative Office Procedures Casting/Splints 77236-Rbau/Wrist Cast Application Procedure code (CPT) selection complete Results Reviewed Results Reviewed: X-rays obtained in the office today and independently reviewed by me, Jonny Jung PA-C, demonstrate surgically repaired and reduced fracture of the right distal radius with all orthopedic hardware in place and in satisfactory clinical alignment. Assessment & Plan Assessment & Plan (1) Fracture of right distal radius: Code(s): S52.501A - Unspecified fracture of the lower end of right radius, initial encounter for closed fracture Category: Medical Plan 1. Status post right distal radius ORIF DOS 10/12/2024 Patient appears to be recovering well postoperatively Patient is educated about the typical recovery course The patient is placed into a short-arm cast at this time Patient is educated on proper cast care and precautions 2 lb weight limit reinforced in right hand Patient excused from work today Follow-up in 2 weeks with x-rays for reassessment, anticipate cast removal at that time, sooner with any acute concerns Orders: Orders XR wrist RT min 3V Today M25.531 - Pain in right wrist Coding Level of Care Code Global (63419) Diagnoses Fracture of right distal radius S52.501A CPT Codes Casting - CPT: 69993-Ztbe/Wrist Cast Application ([id number])
[2024-10-25 10:02] VITALS: BMI 39.0
== END 2024-10-25 10:59 | disposition home or self-care (01) ==
LOC: HO.HOS 09:47
DX: S52.501A Unspecified fracture of the lower end of right radius, initial encounter for closed fracture (principal)
CPT/HCPCS: 29075; 99024

== ENCOUNTER → 2024-10-25 09:48 | Outpatient (BNV) | payer OTHER, SELFPAY | PROVIDERS: Visit Provider Radiology Diagnostic Radiology | DX: M25.531 Pain in right wrist (principal) | CPT/HCPCS: 73110 ==

== ENCOUNTER 2024-11-08 12:42 | Outpatient (AMB) | payer OTHER, SELFPAY ==
--- NOTE | 2024-11-08 13:16 | A.OFFVIS_ITS ---
Intake Visit Reasons: PO RT distal radius ORIF 10/12/24 AR-2WK follow up Intake Note: Brandy is a 63 year old right hand dominant female who presents today for a post operative visit status post undergoing a right distal radius fracture ORIF, DOS: 10/12/[address] Odilia Correa. At her last visit she was placed in a short arm cast and advised to lift nothing heavier than 2 pounds in the right hand. Cast was removed today to update x-rays. Patient states he right wrist feels very different and good after removing the cast in office. She is experiencing stiffness in the right wrist and all her digits of the right hand. Numbness and tingling occurs only if she has her arm lowered for a long preiod of time. She takes Advil and finds adequate relief with this. Patient needs a work note today. Allergies adhesive tape Adverse Reaction (Severe, Verified 11/08/24 13:19) Rash HPI HPI PO RT distal radius ORIF 10/12/24 AR-2WK follow up: Details: Brandy is a 63 year old right hand dominant female who presents today for a post operative visit status post undergoing a right distal radius fracture ORIF, DOS: 10/12/[address] Odilia Correa. At her last visit she was placed in a short arm cast and advised to lift nothing heavier than 2 pounds in the right hand. Cast was removed today to update x-rays. Patient states he right wrist feels very different and good after removing the cast in office. She is experiencing stiffness in the right wrist and all her digits of the right hand. Numbness and tingling occurs only if she has her arm lowered for a long preiod of time. She takes Advil and finds adequate relief with this. Patient needs a work note today. 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 Neuro: Normal sensation of the tips of all digits of the right hand at this time Vascular: Cap refill brisk Pain: No further tenderness to palpation of the right distal radius Minimal pain with range of motion of the right hand, primarily with flexion of the digits of the right hand ROM: Patient is able to make a closed fist and extend all digits of the right hand fully, but does have some difficulty with doing so Skin: Well approximated and well healing incision site noted on the volar right wrist No lacerations or abrasions. General: Resolving ecchymosis, No erythema, or evidence of infection. Psych: Appears grossly normal Affect normal Attitude cooperative Results Reviewed Results Reviewed: X-rays obtained in the office today and independently reviewed by me, Jonny Jung PA-C, demonstrate surgically repaired and reduced fracture of the right distal radius with all orthopedic hardware in place and in satisfactory clinical alignment and with evidence of interval bony healing. Assessment & Plan Assessment & Plan (1) Fracture of right distal radius: Code(s): S52.501A - Unspecified fracture of the lower end of right radius, initial encounter for closed fracture Category: Medical Plan 1. Status post right distal radius ORIF DOS 10/12/2024 Patient appears to be recovering well postoperatively Patient is educated about the typical recovery course Patient is provided with a Velcro wrist splint to be worn with daytime ac tivities Patient should come out of the Velcro wrist splint to work on range of motion of the right wrist while at rest OT also order to work on range of motion of the right wrist and hand 2 lb weight limit reinforced Patient is provided with a work note today Follow-up in 4 weeks with x-rays for reassessment,, sooner with any acute concerns Orders: Orders OT Evaluation and Treatment 11/08/24 S52.501A - Unspecified fracture of the lower end of right radius, initial encounter for closed fracture XR wrist RT min 3V 11/08/24 M25.531 - Pain in right wrist Coding Level of Care Code Global (20266) Diagnoses Fracture of right distal radius S52.501A
--- OUTSIDE RECORDS SUMMARY | 2024-11-08 15:11 | XMS_ITS | Patient Health Record ---
[facility] Address [address] [address] Care Team Providers Care Calf Skinner Name Role Phone Daryl Bustos Primary Care Provider Jessica Mckeon Unavailable [phone] Allergies No Known Allergies Reason For Referral [...] or walking 10/29/2014 Not-Taking Advair Diskus Not-Ta [facility] Allergy Activ e Simvastatin 40 MG 1 [...] Problem Stress fracture of left ankle (disorder) ([id number] 3) Stress fracture of left ankle with routine healing (M84.372D) Active confirmed Problem Localized, primary osteoarthritis of the ankle and/or foot (075371852) Osteoarthritis of right ankle and foot (M19.071) Active confirmed Plan Of Treatment Pending Test Test Name Order Date X ray : Ankle, left 2V 07/12/2014 X ray : Foot, left 2V 07/12/2014 X ray : Foot, left 3V 06/10/2011 X ray : Foot, right 3V 12/01/2012 X ray : Foot, right 3V 02/12/2021 93537, J0702- INJECT or DRAIN, JOINT/BUR SA 09/17/2014 97096, J0702- Neuroma/Injection 12/02/19 13 [id number] Boot/Pneumatic 10/15/2011 Insurance Providers Payer Name Payer Address Payer Phone Subscriber Number Group Number Insured Name Patient Relationship to Insured Coverage Start Date Coverage End Date [facility] [address] [place] [address] [phone] [id number] Brandy Del Angel Self - patient is the insured Medical (General) History Medical History History ICD Code asthma chicken pox Surgical History Surgery Date(Month/Year) wisdom teeth extraction
== END 2024-11-08 13:52 | disposition home or self-care (01) ==
LOC: HO.HOS 12:43
DX: S52.501A Unspecified fracture of the lower end of right radius, initial encounter for closed fracture (principal)
CPT/HCPCS: 99024

== ENCOUNTER 2024-11-08 12:42 | Outpatient (REF) | payer OTHER, SELFPAY ==
--- NOTE | ~2024-11-08 | XR_ITS ---
EXAMINATION: XR WRIST, RIGHT CLINICAL INFORMATION: M25.531 - Pain in right wrist COMPARISON: 10/25/2024, 10/11/2024 TECHNIQUE: PA, lateral, and oblique views of the right wrist. FINDINGS: Redemonstration of volar plate and screw fixation of a comminuted intra-articular distal radial fracture. Hardware is intact and well seated. There is anatomical alignment. Fracture lines are still visible without significant change from the prior radiograph. There is a tiny ulnar styloid avulsion fracture. The carpal bones are intact and normally aligned. Joint spaces are maintained. XR/XR wrist RT min 3V IMPRESSION: Fixated comminuted intra-articular distal radial fracture, without significant change from 10/25/2024. Electronically signed by: Yoel lAbert MD 11/08/2024 02:07 PM EDT
== END 2024-11-08 12:43 | disposition home or self-care (01) ==
LOC: HO.HOSX 12:42
DX: Z47.89 Encounter for other orthopedic aftercare (principal); S52.501D Unspecified fracture of the lower end of right radius, subsequent encounter for closed fracture with routine healing; M25.531 Pain in right wrist; X58.XXXD Exposure to other specified factors, subsequent encounter
CPT/HCPCS: 73110

== ENCOUNTER → 2024-11-08 13:06 | Outpatient (BNV) | payer OTHER, SELFPAY | PROVIDERS: Visit Provider Radiology Diagnostic Radiology | DX: M25.531 Pain in right wrist (principal) | CPT/HCPCS: 73110 ==

== ENCOUNTER 2024-12-06 08:17 | Outpatient (REF) | payer OTHER, SELFPAY ==
--- NOTE | ~2024-12-06 | XR_ITS ---
CLINICAL HISTORY: M25.531 - Pain in right wrist 3 view right wrist Comparison: DX/SR - XR WRIST 3 OR MORE VIEWS RIGHT - 11/08/24 13:06 EDT Findings: Open reduction internal fixation of the distal radius with intact hardware. Unchanged fracture of the ulnar styloid. No significant arthritic change or erosions. No radiopaque foreign body. IMPRESSION: Stable postsurgical changes of the wrist. This document has been electronically signed by: Beltran Lomax MD on 12/07/2024 17:46:18
--- OUTSIDE RECORDS SUMMARY | 2024-12-06 08:26 | XMS_ITS | Patient Health Record ---
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 Name Role Phone Daryl Bustos Primary Care Provider Jessica Mckeon Unavailable [phone] Allergies No Known Allergies Reason For Referral [...] or walking 10/29/2014 Not-Taking Advair Diskus Not-Ta [facility] Allergy Activ e Simvastatin 40 MG 1 [...] Problem Stress fracture of left ankle (disorder) ([id number] 3) Stress fracture of left ankle with routine healing (M84.372D) Active confirmed Problem Localized, primary osteoarthritis of the ankle and/or foot (168833628) Osteoarthritis of right ankle and foot (M19.071) Active confirmed Plan Of Treatment Pending Test Test Name Order Date X ray : Ankle, left 2V 07/12/2014 X ray : Foot, left 2V 07/12/2014 X ray : Foot, left 3V 06/10/2011 X ray : Foot, right 3V 12/01/2012 X ray : Foot, right 3V 02/12/2021 78859, J0702- INJECT or DRAIN, JOINT/BUR SA 09/17/2014 57851, J0702- Neuroma/Injection 12/02/19 13 [id number] Boot/Pneumatic 10/15/2011 Insurance Providers Payer Name Payer Address Payer Phone Subscriber Number Group Number Insured Name Patient Relationship to Insured Coverage Start Date Coverage End Date [facility] [address] [place] [address] [phone] [id number] Brandy Del Angel Self - patient is the insured Medical (General) History Medical History History ICD Code asthma chicken pox Surgical History Surgery Date(Month/Year) wisdom teeth extraction
== END 2024-12-06 08:18 | disposition home or self-care (01) ==
LOC: HO.HOSX 08:17
DX: S52.501D Unspecified fracture of the lower end of right radius, subsequent encounter for closed fracture with routine healing (principal); X58.XXXD Exposure to other specified factors, subsequent encounter
CPT/HCPCS: 73110

== ENCOUNTER 2024-12-06 10:48 | Outpatient (AMB) | payer OTHER, SELFPAY ==
[2024-12-06 10:57] VITALS: BMI 39.0
--- NOTE | 2024-12-06 10:57 | MHC.OFFVIS ---
Vital Signs 12/06/24 10:57 Height 5 ft 4 in Weight 227 lb BMI 39.0 Intake Visit Reasons: PO RT distal radius ORIF 10/12/24 AR Intake Note: Brandy is a 64 year old right hand dominant female who presents today for a Post-operative visit status post Right Distal Radius ORIF, DOS: 10/12/[address] Correa. At her last visit she was provided with a Velcro wrist brace to be worn with daytime activities, coming out of it to work on ROM. A 2 lb weight limit was reinforced and a referral to Occupational Therapy was placed. Patient reports stiffness of the right wrist and right thumb. She continues going to therapy and using her Velcro wrist brace during work hours as instructed by her occupational therapist. She denies any pain, numbness, tingling, or finger locking. Allergies adhesive tape Adverse Reaction (Severe, Verified 12/06/24 10:58) Rash HPI HPI PO RT distal radius ORIF 10/12/24 AR: Details: Brandy is a 64 year old right hand dominant female who presents today for a Post-operative visit status post Right Distal Radius ORIF, DOS: 10/12/[address] Correa. At her last visit she was provided with a Velcro wrist brace to be worn with daytime activities, coming out of it to work on ROM. A 2 lb weight limit was reinforced and a referral to Occupational Therapy was placed. Patient reports stiffness of the right wrist and right thumb. She continues going to therapy and using her Velcro wrist brace during work hours as instructed by her occupational therapist. She denies any pain, numbness, tingling, or finger locking. 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 Neuro: Normal sensation of the tips of all digits of the right hand at this time Vascular: Cap refill brisk Pain: No further tenderness to palpation of the right distal radius Minimal pain with range of motion of the right hand, primarily with flexion of the digits of the right hand ROM: Patient is able to make a closed fist and extend all digits of the right hand fully Patient has approximately 30 degrees of wrist flexion and 20 degrees of wrist extension Pronation and supination full and intact Skin: Well approximated and well healing incision site noted on the volar right wrist No lacerations or abrasions. General: Resolving ecchymosis, No erythema, or evidence of infection. Psych: Appears grossly normal Affect normal Attitude cooperative Results Reviewed Results Reviewed: X-rays obtained in the office today and independently reviewed by me, Jonny Jung PA-C, demonstrate surgically repaired and reduced fracture of the right distal radius with all orthopedic hardware in place and in satisfactory clinical alignment and with evidence of interval bony healing. Assessment & Plan Assessment & Plan (1) Fracture of right distal radius: Code(s): S52.501A - Unspecified fracture of the lower end of right radius, initial encounter for closed fracture Category: Medical Plan 1. Status post right distal radius ORIF DOS 10/12/2024 Patient appears to be recovering well postoperatively Patient is educated about the typical recovery course Patient is provided with a Velcro wrist splint to be worn with daytime activities Patient should come out of the Velcro wrist splint to work on range of motion of the right wrist while at rest OT also order to work on range of motion of the right wrist and hand 3-4 lb weight limit reinforced Patient is provided with a work note today Follow-up in 4-6 weeks for [id number] check, sooner with any acute concerns Orders: Orders XR wrist RT min 3V Today M25.531 - Pain in right wrist Coding Level of Care Code Global (68145) Diagnoses Fracture of right distal radius S52.501A
== END 2024-12-06 11:10 | disposition home or self-care (01) ==
LOC: HO.HOS 10:48
DX: S52.501A Unspecified fracture of the lower end of right radius, initial encounter for closed fracture (principal)
CPT/HCPCS: 99024

== ENCOUNTER → 2024-12-06 10:50 | Outpatient (BNV) | payer OTHER, SELFPAY | PROVIDERS: Visit Provider Nuclear Medicine | DX: M25.531 Pain in right wrist (principal) | CPT/HCPCS: 73110 ==

== ENCOUNTER 2024-12-20 15:30 | Outpatient (RCR) | payer OTHER, SELFPAY ==
--- NOTE | 2024-11-21 15:53 | MHC.OT.EP ---
[facility] Office [address] [facility] [phone] F: [phone] F: [phone] Occupational Therapy Plan of Care Patient Name: Brandy Del Angel Date of Evaluation: 11/21/24 Diagnosis: R DRFx post ORIF Pain Location: Pain Score: o Pain Scale Used: Numeric (0 - 10) Aggravating Factors: Alleviating Factors: no pain ; just stiff Assessment: Pt is a 64 yr old R hand dominant female who fractured her distal radius fracture while at her daughters when she tripped. Pt went to the walk in clinic in [place] and was placed in a temporary cast. She then met Dr. Correa the following day and scheduled her surgery. 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 Pt presents today w/ decreased ROM, strength, and the functional use of her R hand. She would benefit from skilled OT therapy to address these deficits and RPLOF. Frequency and Duration: The patient will be seen 2xs a week for 8 weeks Short Term Goals: Pt will be compliant w/ her HEP Pt will have 50 of pain free wrist flexion Pt will have 40 of pain free wrist extension Pt will make a composite fist Ultrasound Manager Goals: Pt will have 80 of supination Pt will increase wrist flexion to 60 Pt return to work at [employer] w/out modifications Treatment Plan: Therapeutic Exercise Therapeutic Activity Home Exercise Program Neuro Re-ed Patient Education Desensitization/Sensory Re-ed Edema Control ADL Training Ultrasound NMES Iontophoresis Paraffin Fluidotherapy MHP Cold Packs Joint Mobilization Soft Tissue Mobilization Electronically Signed By: Cammy Camara OTR/L Please Sign and return to therapist. Thank you once again for your referral.
--- NOTE | 2024-12-20 16:09 | MHC.OT.DC ---
[facility] Office [address] [phone] F: [phone] F: [phone] Occupational Therapy Discharge Note Patient Name: Brandy Del Angel Provider: Jonny Jung Diagnosis: R DRFx post ORIF Date of Surgery: 10/12/24 Date of Evaluation: 11/21/24 Date of Discharge: Treatments to Date: 8 Cancellations to Date: No Shows to Date: Discharge Status: Achieved Goals Improved Function Independent with HEP Discharge Summary: Pt reports making excellent progress in therapy she measured 80sup, 80 pro, 45extension and 50 of wrist flexion today. 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 Thank you for including me in her care! Electronically Signed By: Cammy Camara OTR/L Reviewed/agree with student documentation: Therapist: Please Sign and return to therapist, thank you for your referral.
== END 2024-12-20 16:09 | disposition home or self-care (01) ==
LOC: HO.OT 15:30
DX: S52.501D Unspecified fracture of the lower end of right radius, subsequent encounter for closed fracture with routine healing (principal)
CPT/HCPCS: 97110; 97140; 97166